=== PATIENT | male | born 1985 | race Caucasian/White ===

== ENCOUNTER 2017-01-29 12:47 | Emergency (ER) | payer SELFPAY ==
[~2017-01-29] VITALS: Ht 190.5 cm; Wt 90.0 kg
[2017-01-29 12:49] VITALS: BP 136/66; PULSE 98; RESP 17; TEMP 98.1; O2SAT 98
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
[2017-01-29] MEDS ORDERED: IBUP800T23 PO (14:31)
[2017-01-29] MEDS ORDERED: ROBA500T PO (14:31)
== END 2017-01-29 15:07 | disposition home or self-care (01) ==
LOC: NEPB 12:47
DX: S70.00XA Contusion of unspecified hip, initial encounter (principal); T14.8 Other injury of unspecified body region; M79.671 Pain in right foot; V23.4XXA Motorcycle driver injured in collision with car, pick-up truck or van in traffic accident, initial encounter; Y93.89 Activity, other specified; Y92.410 Unspecified street and highway as the place of occurrence of the external cause; Y99.9 Unspecified external cause status
CPT/HCPCS: 73502; 73630; 99284